=== PATIENT | female | born 1940 | race Caucasian/White ===

== ENCOUNTER 2016-08-12 12:36 | Emergency (ER) | payer MEDICARE ==
[~2016-08-12] VITALS: Ht 165.1 cm; Wt 65.3 kg
[2016-08-12 12:50] VITALS: BP 168/74
[2016-08-12] MEDS ORDERED: HYDROcodone/APAP 5/325MG 1 TAB TABLET ONE (12:58)
--- NOTE | 2016-08-12 13:05 | PHYS DOC ---
Past History Past Medical History: Depression, Hypertension Past Surgical History: Other Smoking: Non-smoker Alcohol Use: None Drug Use: None Adult General Chief Complaint Chief Complaint: TOE PROBLEM HPI HPI Patient is a pleasant 75-year-old female with history of hypertension who sustained a toe injury to the left great toe 3 weeks ago for a heavy ball landed on the outside the toe breaking the skin. Since that time she's had a little toe pain has gotten progressively worse over last few days increased redness or localized swelling. Patient believes that it is not fractured but is concerned about localized possible clot formation or infection given warmth of the toe and increasing swelling and redness. She denies any other systemic fevers, numbness and teething to the foot or for any other systemic response. Patient denies any recent antibiotic use. She's been in [place] for 1 week visiting from [place]. Review of Systems Review of Systems Constitutional: Denies fever or chills [] Eyes: Denies change in visual acuity, redness, or eye pain [] HENT: Denies nasal congestion or sore throat [] Respiratory: Denies cough or shortness of breath [] Cardiovascular: No additional information not addressed in HPI [] GI: Denies abdominal pain, nausea, vomiting, bloody stools or diarrhea [] : Denies dysuria or hematuria [] Musculoskeletal: Complains only of right big toe pain Integument: Some localized swelling to the lateral aspect of the left big toe Neurologic: Denies headache, focal weakness or sensory changes [] Endocrine: Denies polyuria or polydipsia [] Allergies Allergies Allergies Coded Allergies Type Severity Reaction Last Updated Verified No Known Drug Allergies 08/12/16 No Physical Exam Physical Exam Constitutional: Well developed, well nourished, no acute distress, non-toxic appearance. [] Cardiovascular:Heart rate regular rhythm, no murmur [] Lungs & Thorax: Bilateral breath sounds clear to auscultation [] Skin: Warm, dry, erythema of the toe lateral to the wound. There is no fluctuance, no fluid collection no subcutaneous tenderness air noted. She has warmth to the skin with no evidence of vesicles or purpura is not circumferential. She has brisk capillary refill +2, Extremities: Tenderness noted over the left toe distal and proximal phalanx no cyanosis, no clubbing, ROM intact, noted localized edema secondary to soft tissue trauma. [] Neurologic: Alert and oriented X 3, normal motor function, normal sensory function, no focal deficits noted. [] Psychologic: Affect normal, judgement normal, mood normal. [] Current Patient Data Vital Signs Vital Signs Date Time Temp Pulse Resp B/P (MAP) Pulse Ox O2 Delivery O2 Flow Rate FiO2 08/12/16 12:50 97.6 84 18 96 Room Air EKG EKG [] Radiology/Procedures Radiology/Procedures [] Course & Med Decision Making Course & Med Decision Making Pertinent Labs and Imaging studies reviewed. (See chart for details) [] This patient is suffering from an early paronychial infection secondary to trauma inflicted 3 weeks ago. X-ray per completed to ensure no fracture concomitant below the soft tissue skin. Doubt clinically significant clot or other infectious etiology or inflammatory etiology like gout. X-rays are read and reviewed by me demonstrate a small avulsion fracture to the medial aspect of the distal phalanx and a common fracture through the articular surface of the proximal phalanx. Discussed case and showed x-rays to family who now understands need for follow-up care or podiatry. Patient was to be treated with antibiotics for possible paronychial infection until she is seen by her fruit receiver. She will be provided pain medications and instructions to return for any new or increasing symptoms or shows any fevers and chills chills with drainage from the wound and toes. Impression: Phalanx fracture left big toe, paronychial infection Disposition: Discharged with PCP follow-up -24 hours podiatry referral cautions given to family bedside Dragon Disclaimer Dragon Disclaimer This chart was dictated in whole or in part using Voice Recognition software in a busy, high-work load, and often noisy Emergency Department environment. It may contain unintended and wholly unrecognized errors or omissions. Departure Departure: Impression: Primary Impression: Paronychia of great toe of left foot Additional Impression: Fracture, phalanx, foot Disposition: 01 HOME, SELF-CARE Condition: IMPROVED Referrals: NON,STAFF (PCP) Patient Instructions: Paronychia, Toe Fracture Additional Instructions: He is return for any new or increasing symptoms, pain, fevers, redness and chills at streaking up the foot or if you have any questions or concerns. Scripts Hydrocodone Bit/Acetaminophen (HYDROCODONE-APAP 5-325 ) 1 Each Tablet 1 TAB PO PRN Q6HRS Y for PAIN for 5 Days, #14 TAB 0 Refills Prov: KOTA DRAKE MD 08/12/16 Naproxen (NAPROSYN) 500 Mg Tablet 1 TAB PO BID, #20 TAB 1 Refill Prov: KOTA DRAKE MD 08/12/16 Clindamycin Hcl (CLINDAMYCIN HCL) 300 Mg Capsule 1 CAP PO TID, #30 CAP Prov: KOTA DRAKE MD 08/12/16 Problem Qualifiers KOTA DRAKE MD August 12, 2016 13:05
[2016-08-12] MEDS ORDERED: HYDROcodone/APAP 5/325MG 1 TAB TABLET PO ONE (13:15)
--- NOTE | 2016-08-12 13:24 | RAD ---
Left toes, 3 views, 08/12/2016: History: Toe injury There is a fracture of the distal aspect of the proximal phalanx. The fracture is nondisplaced. A fracture line does involve its distal articular surface with a slight cortical offset at that level. There is an oblique fracture of the proximal aspect of the distal phalanx laterally. There is a suggestion of an additional fracture line through the midportion of the distal phalanx, nondisplaced. There are mild degenerative changes at scattered interphalangeal joints. No additional fracture is evident. IMPRESSION: Nondisplaced fractures of the proximal and distal phalanges of the great toe.
[2016-08-12] MEDS ORDERED: HYDR-2758 PO (13:25)
[2016-08-12] MEDS ORDERED: CLIN300C8 PO (13:25)
[2016-08-12] MEDS ORDERED: NAPR500T PO (13:25)
== END 2016-08-12 13:36 | disposition home or self-care (01) ==
LOC: ER 12:36
DX: S92.532A Displaced fracture of distal phalanx of left lesser toe(s), initial encounter for closed fracture (principal); L03.032 Cellulitis of left toe; I10 Essential (primary) hypertension; W20.8XXA Other cause of strike by thrown, projected or falling object, initial encounter; Y93.89 Activity, other specified; Y99.8 Other external cause status; Y92.89 Other specified places as the place of occurrence of the external cause
CPT/HCPCS: 73660; 99284